=== PATIENT | male | born 1935 | race Hispanic/Latino ===

== ENCOUNTER 2016-06-20 14:20 | Inpatient (IN) | payer MEDICARE ==
[2016-06-20] MEDS ORDERED: ZOFRAN ONE (15:00)
[2016-06-20] MEDS ORDERED: ZOFRAN IV ONE ×2 (15:09→18:53)
--- NOTE | 2016-06-20 15:30 | Emergency Department Report ---
HPI - General Chief Complaint: Syncope Time Seen by Provider: 06/20/16 15:00 - HPI HPI: This is a 80-year-old male who presents to the emergency department by EMS from home with complaint of a passing out at home. The patient was outside working on the car when he started "feeling weird." He then went inside and sat down on a chair and his noticed him with his eyes rolling in the back of his head and his head fell back. She then tried to move his head back to midline but it continued to fall back with his eyes rolling in the back of his head. About a minute later the patient seemed to return back to normal level of consciousness. He complains of some generalized dizziness and/ or lightheadedness. Otherwise there is been no slurred speech, vision change, problems with ambulation or movement. Patient has a history of hypertension but no history of [place], CVA, PE/DVT. He doesn't history of some coronary artery disease but there are no stents placed and he has never had a bypass. 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 ED Past Medical Hx - Past Medical History Previous Medical History?: Yes Hx Hypertension: Yes Hx GERD: Yes Hx Arthritis: Yes Additional medical history: "heart blockages"--patient/ unsure if EKG related or vasculature related. high cholesterol - Social History Smoking Status: Former Smoker - Medications Home Medications: Home Medications Medication Instructions Recorded Confirmed Last Taken Type Aspirin EC [Aspirin Enteric Coated 81 mg PO QDAY 09/03/15 06/20/16 08/31/15 History TAB] Celecoxib [celeBREX] 200 mg PO QDAY 09/03/15 06/20/16 09/03/15 06:00 History Metoprolol [Lopressor TAB] 50 mg PO DAILY 09/03/15 06/20/16 09/02/15 History Nortriptyline [Pamelor] 25 mg PO QHS 09/03/15 06/20/16 2 Months Ago History Omeprazole/Sodium Bicarbonate 1 each PO Q42H PRN 09/03/15 06/20/16 3 Weeks Ago History [Zegerid 40-1,100 mg] Simvastatin [Zocor TAB] 20 mg PO DAILY 03/06/20/16 09/02/15 History Tramadol HCl [traMADol] 50 mg PO DAILY 09/03/15 06/20/16 09/03/15 History 0600 ED Review of Systems ROS: Stated complaint: SYNCOPE Other details as noted in HPI Comment: All other systems reviewed and negative Constitutional: denies: chills, fever Eyes: denies: eye pain, eye discharge, vision change ENT: denies: ear pain, throat pain Respiratory: denies: cough, shortness of breath, wheezing Cardiovascular: syncope. denies: chest pain Gastrointestinal: nausea. denies: abdominal pain, diarrhea Genitourinary: denies: urgency, dysuria Musculoskeletal: denies: back pain, joint swelling, arthralgia Skin: denies: rash, lesions Neurological: weakness. denies: numbness, paresthesias Physical Exam - Physical Exam Vital Signs: Vital Signs 06/20/16 14:38 Pulse Rate 77 Respiratory 16 Rate Blood Pressure 102/68 O2 Sat by Pulse 99 Oximetry Physical Exam: GENERAL: The patient is well-developed well-nourished. HEENT: Normocephalic. Atraumatic. Extraocular motions are intact. Patient has moist mucous membranes. Pupils equal reactive to light bilaterally. No nystagmus. NECK: Supple. Trachea is midline. CHEST/LUNGS: Clear to auscultation. There is no respiratory distress noted. HEART/CARDIOVASCULAR: Regular. There is no tachycardia. There is no gallop rub or murmur. ABDOMEN: Abdomen is soft, nontender. Patient has normal bowel sounds. There is no abdominal distention. SKIN: There is no rash. There is no edema. There is no diaphoresis. NEURO: The patient is awake, alert, and oriented. The patient is cooperative. The patient has no focal neurologic deficits. The patient has normal speech. Cranial nerves II-12 grossly intact. No pronator drift. MUSCULOSKELETAL: There is no tenderness or deformity. There is no evidence of acute injury. ED Course Vital Signs 06/20/16 14:38 Pulse Rate 77 Respiratory 16 Rate Blood Pressure 102/68 O2 Sat by Pulse 99 Oximetry ED Medical Decision Making - Lab Data Result diagrams: 06/20/16 15:19 06/20/16 15:19 - EKG Data -: EKG Interpreted by Me EKG shows normal: sinus rhythm (with PACs), axis (left axis deviation), intervals, QRS complexes (LVH with LBBB), ST-T waves Rate: normal - EKG Data When compared to previous EKG there are: no significant change Interpretation: unchanged when compared t (09/03/15), other (sinus with PACs) - Radiology Data Radiology results: report reviewed, image reviewed interpreted by me: Chest x-ray did not show any acute process. Heart is normal shape and size. No effusions. No pneumothorax. No signs of pneumonia seen. CT of the head does not show any acute process including no hemorrhage, mass, shift, diffuse edema or skull fracture. - Medical Decision Making 80-year-old male presents the emergency department after a syncopal episode that could've been seizure versus TIA versus other. CT of the head does not show any bleed, shift, mass or any acute process. Chest x-ray does not show any acute process. EKG shows left bundle branch block that is unchanged but does not show any STEMI or dysrhythmia. Patient's labs have been mostly unremarkable do not show any etiology the patient's symptoms. Since the patient is of advanced age, has a history of coronary artery disease, and still complains of some generalized dizziness, he'll be admitted to hospital for further evaluation and possible further imaging. He has been accepted for admission by the hospitalist, Dr. Watt. - Differential Diagnosis syncope, TIA, CVA, brain bleed, hypoglycemia Critical Care Time: No Critical care attestation.: If time is entered above; I have spent that time in minutes in the direct care of this critically ill patient, excluding procedure time. ED Disposition Clinical Impression: Hyperkalemia, Dizziness Syncope Qualifiers: Syncope type: unspecified Qualified Code(s): R55 - Syncope and collapse Disposition: OP ADMITTED IP TO THIS HOSP Is pt being admited?: Yes Does the pt Need Aspirin: Yes Condition: Stable Instructions: Syncope (ED) Time of Disposition: 18:18
[2016-06-20 15:37] LABS: Basophils % (Auto) 0.6 % (0.0-1.8); Eosinophils % (Auto) 2.1 % (0.0-4.3); Hematocrit 42.3 % (35.5-45.6); Hemoglobin 14.4 gm/dl (11.8-15.2); Mean Corpuscular HGB Conc 34 % (32-34); Mean Corpuscular Hemoglobin 34 pg (28-32); Mean Corpuscular Volume 100 fl (84-94); Platelet Count 192 K/mm3 (140-440); Red Blood Count 4.25 M/mm3 (3.65-5.03); Red Cell Distribution Width 13.4 % (13.2-15.2); White Blood Count 10.1 K/mm3 (4.5-11.0)
--- NOTE | 2016-06-20 15:53 | Cat Scan Report ---
CT HEAD WITHOUT CONTRAST INDICATION: Syncope. COMPARISON: 08/02/2007. FINDINGS: Noncontrast head CT demonstrates normal ventricles with symmetric, mildly enlarged, age appropriate sulci. Slight periventricular hypodensities. Minimal, benign right basal ganglia calcification. No acute infarct, hemorrhage, mass effect or midline shift. No abnormal extra axial fluid collections. Normal posterior fossa with preserved basilar cisterns. Unremarkable eye globes. Slight nasal septal deviation. Mild bilateral ethmoid and frontal sinusitis. Approximately 2 cm possible retention cyst in the right maxillary sinus inferiorly incompletely imaged. Clear mastoid air cells. Atherosclerotic internal carotid artery calcifications. Normal calvarium and scalp. Edentulous jaw. C3-C4 disc narrowing. CONCLUSION: Sinus disease without acute intracranial CT abnormality and few other incidental findings, as above. Thank you for the opportunity to participate in this patient's care.
[2016-06-20 15:59] LABS: Creatine Kinase MB 2.5 ng/mL (0.0-4.0)
[2016-06-20 16:01] LABS: Blood Urea Nitrogen 27 mg/dL (9-20); Carbon Dioxide 26 mmol/L (22-30); Chloride 102.6 mmol/L (98-107); Creatine Kinase 53 units/L (55-170); Glucose 121 mg/dL (75-100); Potassium 5.3 mmol/L (3.6-5.0); Sodium 140 mmol/L (137-145)
[2016-06-20 16:05] LABS: Anion Gap 17 mmol/L
--- NOTE | 2016-06-20 16:37 | Admit Criteria Form ---
Admission Criteria Documentation: SYNCOPE Clinical Indications for Admission to Inpatient Care ( Place 'X' for any and all applicable criteria): Admission is indicated for syncope and ANY ONE of the following (1)(2)(3)(4)(5) (6)(7) : [X ]I. Inpatient admission required rather than observation care (Also use Syncope: Observation Care Criteria as appropriate) because of ANY ONE of the following: [ ]a) Hemodynamic instability that is severe or persistent [ ]b) Cardiac arrhythmias of immediate concern identified or strongly suspected (eg, needs electrophysiologic study) [ ]c) Acute coronary syndrome identified (Also use Myocardial Infarction or Angina Criteria form ) [ ]d) Structural cardiac disorder (eg, aortic stenosis) suspected as cause that requires immediate correction [ ]e) Respiratory symptoms (eg, dyspnea, tachypnea) that are severe or persistent [ ]f) Neurologic signs or symptoms that are severe or persistent ( eg, stroke, seizures, altered mental status) [ ]g) Severe electrolyte abnormalities requiring inpatient care [ ]h) Supplemental oxygen or respiratory treatment for over 24 hrs that are performable only in acute inpatient setting [ ]i) IV fluid to replace significant ongoing (eg, for over 24 hrs ) losses (>3 L/m2 per day) [ ]j) Continuous intravenous infusion of anticoagulation, platelet inhibitor, vasoactive, or antiarrhythmic medication(15)(16) [ ]k) Pulmonary artery catheter monitoring [ ]l) Temporary pacemaker placement(17) [ ]m) Emergent cardioversion(18) [X]n) Other conditions, treatment or monitoring requiring inpatient admission [ ]II. Suspicion of imminently dangerous cause (eg, rare causes like pericardial tamponade, pulmonary embolism) [ ]III. Syncope causing severe injury requiring hospitalization Extended stay beyond goal length of stay may be needed for(28) [ ]a) Dangerous arrhythmia(15)(23)(27)(29) [ ]b) Myocardial ischemia [ ]c) Seizure disorder [ ]d) Syncope-related injuries The original [employer] content created by [employer] has been revised. The portions of the content which have been revised are identified through the use of italic text or in bold, and [employer] has neither reviewed nor approved the modified material. All other unmodified content is copyright [employer]. Please see references footnoted in the original [facility] edition 2016 Admission Criteria Met: Yes
--- NOTE | 2016-06-20 17:00 | XRay Report ---
PORTABLE CHEST: INDICATION: Syncope. COMPARISON: 11/20/2013 FINDINGS: Portable, frontal chest radiograph again demonstrates exaggerated cardiomediastinal silhouette/borderline cardiomegaly, mild aortic knob calcifications and clear lungs. Minimal fluid or thickening along the right minor fissure may again be noted. EKG leads. Demineralized bones with few degenerative changes. CONCLUSION: No acute chest process or significant interval change, as described. Thank you for the opportunity to participate in this patient's care.
[2016-06-20] MEDS ORDERED: BABY ASPIRIN PO ONE (18:18)
[2016-06-20] MEDS ORDERED: REGLAN ONE (19:31)
[2016-06-20] MEDS ORDERED: REGLAN IV ONE (19:32)
--- NOTE | 2016-06-21 02:40 | History and Physical Report ---
History of Present Illness Date of examination: 06/21/16 Date of admission: 06/20/16 22:28 Chief complaint: Unresponsiveness, coronary artery disease History of present illness: Patient is an 80-year-old gentleman who has a history of carotid disease, right hip was standing in the kitchen area with bedside, when he started feeling dizzy. His helped him to sit in a close by around the chair. Shortly thereafter patient treated with his head rolled his eyes. Was unresponsive about 2 minutes. Patient tried to arouse patient but was unsuccessful. Patient came around after 2 minutes. EMS was called in. Pt was brought to the emergency department where CT scan of the brain showed no evidence of intracranial hemorrhage or acute infarction. Right maxillary retention cyst identified. Denies any headache, chest pain or shortness of breath. Past History Past Medical History: hypertension, other (osteoarthritis) Past Surgical History: denies: No surgical history Social history: lives with family. denies: smoking, alcohol abuse, IV drug use Family history: CAD, diabetes Medications and Allergies Allergies Allergy/AdvReac Type Severity Reaction Status Date / Time diclofenac sodium Allergy Unknown Verified 11/20/13 01:55 [From [facility]] Home Medications Medication Instructions Recorded Confirmed Last Taken Type Aspirin EC [Aspirin Enteric Coated 81 mg PO QDAY 09/03/15 06/20/16 08/31/15 History TAB] Celecoxib [celeBREX] 200 mg PO QDAY 09/03/15 06/20/16 09/03/15 06:00 History Metoprolol [Lopressor TAB] 50 mg PO DAILY 09/03/15 06/20/16 09/02/15 History Nortriptyline [Pamelor] 25 mg PO QHS 09/03/15 06/20/16 2 Months Ago History Omeprazole/Sodium Bicarbonate 1 each PO QDAY 09/03/15 06/20/16 3 Weeks Ago History [Zegerid 40-1,100 mg] Simvastatin [Zocor TAB] 20 mg PO DAILY 09/03/15 06/20/16 09/02/15 History Tramadol HCl [traMADol] 50 mg PO DAILY 09/03/15 06/20/16 09/03/15 History 0600 Active Meds: Active Medications Aspirin (Halfprin Ec) 81 mg PO QDAY [facility] Celecoxib (Celebrex) 200 mg PO QDAY [facility] Influenza Virus Vaccine Quadrival (Fluarix Quad [id number](36 Mos+)) 60 mcg IM .ONCE ONE Stop: 06/21/16 10:01 Metoprolol Tartrate (Lopressor) 50 mg PO DAILY [facility] Nortriptyline HCl (Pamelor) 25 mg PO QHS [facility] Pantoprazole Sodium (Protonix) 40 mg PO DAILY PRN PRN Reason: Dyspepsia Simvastatin (Zocor) 20 mg PO DAILY [facility]ANI Tramadol HCl (Ultram) 50 mg PO BID [facility] Review of systems Constitutional: Well Nouridhed and Well developed. Head: NC/ AT Eyes: Denies any visual impairments. No discharge from the eyes Nose: Denies any rhinorrhea or epistaxis Throats: Denies any post nasal drainage. Ears: Denies any hearing deficits Cardiovascular system: Denies any chest pain, shortness of breath, orthopnea, paroxysmal nocturnal dyspnea, or palpitation. Respiratory system: Denies any cough, difficulty breathing, wheezing, pleuritic chest pain, Gastrointestinal system: Denies any abdominal pain, nausea vomiting, hematemesis or melena. Neurological system: Denies any headache, slurred speech, facial droop, lateralizing weakness Genitalia system: Denies any dysuria, urinary frequency or urgency, urethral discharge Skin: No rashes, hyperpigmented spots. Hematological: Denies any cervical tenderness hemorrhages or petechia. Immunological: Denies any multiple septic spots, Lymphatic: Denies any generalized lymphadenopathy. Endocrine: Denies any polyuria, polydipsia, polyphagia. No heat or cold intolerance. Exam - Constitutional Vitals: Temp Pulse Resp BP Pulse Ox 98.1 F 94 H 18 148/81 94 06/21/16 00:10 06/21/16 00:10 06/21/16 00:10 06/21/16 00:10 06/21/16 00:10 General appearance: Present: no acute distress, well-nourished - EENT Eyes: Present: PERRL ENT: hearing intact, clear oral mucosa - Neck Neck: Present: supple, normal ROM - Respiratory Respiratory effort: normal Respiratory: bilateral: CTA - Cardiovascular Heart Sounds: Present: S1 & S2. Absent: rub, click - Extremities Extremities: pulses symmetrical, No edema Peripheral Pulses: within normal limits - Abdominal General gastrointestinal: Present: soft, non-tender, non-distended, normal bowel sounds Male genitourinary: Present: normal - Integumentary Integumentary: Present: clear, warm, dry - Musculoskeletal Musculoskeletal: gait normal, strength equal bilaterally - Psychiatric Psychiatric: appropriate mood/affect, intact judgment & insight - Neurologic Neurologic: CNII-XII intact, moves all extremities Results - Labs CBC & Chem 7: 06/20/16 15:19 06/20/16 15:19 Assessment and Plan Assessment 1 TIA 2. Coronary artery disease axis unresponsiveness 3. Hyperglycemia Plan Neuro check every 4, MRI of the brain, carotid Doppler, TSH and lipid panel. Commence patient on aspirin 325 mg daily DVT prophylaxis with Lovenox, Atorvastatin 20 mg daily lisinopril 10 mg A1c DVT prophylaxis with Lovenox, GI prophylaxis with Protonix Spent 35 minutes in direct patient care management plan to the patient and family members. - Patient Problems (1) TIA (transient ischemic attack) Current Visit: Yes Status: Acute (2) Hyperkalemia Diagnosis Date: 06/20/16 Current Visit: Yes Status: Acute (3) Syncope Diagnosis Date: 06/20/16 Current Visit: Yes Status: Acute Qualifiers: Syncope type: unspecified Qualified Code(s): R55 - Syncope and collapse
[2016-06-21 09:25] LABS: Anion Gap 17 mmol/L; BUN/Creatinine Ratio 32.22; Blood Urea Nitrogen 29 mg/dL (9-20); Calcium 8.7 mg/dL (8.4-10.2); Carbon Dioxide 25 mmol/L (22-30); Chloride 99.5 mmol/L (98-107); Glucose 123 mg/dL (75-100); Potassium 4.7 mmol/L (3.6-5.0); Sodium 137 mmol/L (137-145)
[2016-06-21] MEDS ORDERED: PROTONIX PO PRN (10:00)
--- NOTE | 2016-06-21 11:41 | Magnetic Resonance Report ---
MRI OF THE BRAIN WITHOUT CONTRAST: HISTORY: TIA PROCEDURE: Multiplanar, multisequence MR imaging of the brain without IV contrast was performed. FINDINGS: Compared to the CT brain dated 06/20/16. Mild diffuse volume loss and mild nonspecific chronic white matter changes are noted. No evidence for acute ischemia, hemorrhage or mass. No chronic infarct or extra-axial fluid collection. The midline structures are central. The basal cisterns are patent. Normal ventricular size. The orbital cavities and sella turcica demonstrate no abnormality. The visualized paranasal sinuses and mastoid air cells are well aerated. IMPRESSION: No acute intracranial process. Volume loss and chronic white matter changes which appear appropriate for this persons age.
[2016-06-21] MEDS: ULTRAM PO SCH ×2 (11:54→22:34)
[2016-06-21] MEDS ORDERED: FLUARIX QUAD 2016-2017(36 MOS+) IM ONE (12:00)
[2016-06-21] MEDS ORDERED: ZOFRAN IV PRN (12:00)
[2016-06-21] MEDS: HALFPRIN EC PO SCH (12:53)
[2016-06-21] MEDS: ZOCOR PO SCH (12:53)
[2016-06-21] MEDS: LOPRESSOR PO SCH (12:55)
--- NOTE | 2016-06-21 16:32 | Discharge Summary ---
Providers - Providers Date of Admission: 06/20/16 22:28 Date of discharge: 06/21/16 Attending physician: ANDREA DANIELLE Primary care physician: JESSICA MELCHOR MD Hospitalization Condition: Fair Disposition: DISCHARGED TO HOME OR SELFCARE - Discharge Diagnoses (1) Vasovagal syncope Status: Acute (2) Dizziness Status: Acute (3) Hyperkalemia Status: Acute (4) HTN (hypertension) Status: Chronic (5) Hyperlipidemia Status: Chronic Core Measure Documentation - Palliative Care Palliative Care/ Comfort Measures: Not Applicable - Core Measures Any of the following diagnoses?: none Exam - Constitutional Vitals: Temp Pulse Resp BP Pulse Ox 98.7 F 68 20 146/77 95 06/21/16 16:00 06/21/16 16:00 06/21/16 16:00 06/21/16 16:00 06/21/16 16:00 General appearance: Present: no acute distress Plan Activity: no driving until cleared by PCP Diet: low fat, low cholesterol, low salt Additional Instructions: 1. Follow up with primary care physician in one week. 2. Follow-up with cardiology in 1 week Follow up with: PRIMARY CARE, [Primary Care Provider] - 3-5 Days Prescriptions: Meclizine [Antivert] 25 mg PO TID PRN #30 tablet PRN Reason: dizziness
--- NOTE | 2016-06-21 18:01 | Echocardiography Report ---
Transthoracic Echocardiogram Indication: Syncope BP: 123/76 Findings Left Ventricle: The left ventricular chamber size is normal. Mild concentric left ventricular hypertrophy is observed. Global left ventricular wall motion and contractility are within normal limits. Global left ventricular systolic function is at the lower limits of normal. The estimated ejection fraction is 50-55%. Abnormal left ventricular diastolic filling is observed, consistent with impaired relaxation. Left Atrium: The left atrial chamber size is normal. Right Ventricle: The right ventricular cavity size is normal. The right ventricular global systolic function is normal. Right Atrium: The right atrial cavity size is normal. The interatrial septum appears normal. Aortic Valve: The aortic valve is trileaflet. The aortic valve leaflets are moderately thickened. Mild aortic leaflet calcification is visualized. There is trace of aortic regurgitation. There is no evidence of aortic stenosis. Mitral Valve: The mitral valve leaflets appear myxomatous. There is mitral annular calcification. The mitral valve leaflets are mildly thickened. Mild mitral leaflet calcification is visualized. There is mild to moderate mitral regurgitation. There is no evidence of mitral stenosis. Tricuspid Valve: The tricuspid valve leaflets are normal. There is trace tricuspid regurgitation. The right ventricular systolic pressure is calculated at 20 mmHg. No pulmonary hypertension is noted. There is no tricuspid stenosis. Pulmonic Valve: The pulmonic valve appears normal. There is no evidence of pulmonic regurgitation. There is no pulmonic stenosis. Pericardium: There is no pericardial effusion. Aorta: There is no dilatation of the ascending aorta. There is no dilatation of the aortic root. Venous: The inferior vena cava appears normal in size. Measurements Chambers MM Name Value Normal Range Ao root diameter (MM) 3.1 cm (2 - 3.7) LA dimension (AP) MM 4.4 cm (1.9 - 4) LA:Ao ratio (MM) 1.42 ratio - AV cusp separation (MM) 1.4 cm (1.5 - 2.6) Chambers 2D Name Value Normal Range IVSd (2D) 1.25 cm (0.6 - 1.1) LVPWd (2D) 1.25 cm (0.6 - 1.1) IVS:LVPW ratio (2D) 1 ratio - LVIDd (2D) 4.3 cm (3.7 - 5.6) LVIDs (2D) 3.2 cm (2 - 3.8) LV FS (Teichholz) (2D) 25.6 % - LV FS (cube) (2D) 25.6 % - EF Teichholz (2D) 50.7 % - LA dimension (AP) 2D 3.5 cm (1.9 - 4) Volumes/Mass Name Value Normal Range LA ESV SP 4CH (MOD) 27 ml - LA ESV SP 2CH (MOD) 44 ml - LA ESV BP (MOD) 35 ml - LA ESV BP (MOD) index 18 ml/m2 - Diastolic/Systolic Function Name Value Normal Range MV E-wave Vmax 0.57 m/sec - MV deceleration time 211 msec - MV A-wave Vmax 1.18 m/sec - MV E:A ratio 0.5 ratio - LV septal e' Vmax 0.06 m/sec - LV lateral e' Vmax 0.08 m/sec - LV E:e' septal ratio 9.5 ratio - LV E:e' lateral ratio 6.9 ratio - Aortic Valve Name Value Normal Range AV VTI 31.5 cm - AV mean gradient 7 mmHg - LVOT diameter 2.1 cm - LVOT VTI 21 cm - LVOT mean gradient 3 mmHg - SV LVOT 73 ml - VEL (continuity VTI) 2.31 cm2 - Mitral Valve Name Value Normal Range MV PHT 54 msec - MR Vmax 4.15 m/sec - MVA (PHT) 4.07 cm2 - Tricuspid Valve Name Value Normal Range TR Vmax 2.05 m/sec - TR peak gradient 17 mmHg - RAP 3 mmHg - RVSP 20 mmHg - Pulmonic Valve/Qp:Qs Name Value Normal Range PV Vmax 1.25 m/sec - PV peak gradient 6 mmHg - PV acceleration time 106 msec -
--- NOTE | 2016-06-21 18:10 | Progress Note ---
Assessment and Plan - Patient Problems (1) Vasovagal syncope Current Visit: Yes Status: Acute (2) Dizziness Current Visit: Yes Status: Acute (3) Hyperkalemia Diagnosis Date: 06/20/16 Current Visit: Yes Status: Acute (4) HTN (hypertension) Current Visit: Yes Status: Chronic (5) Hyperlipidemia Current Visit: Yes Status: Chronic Hospitalist Physical - Constitutional Vitals: Temp Pulse Resp BP Pulse Ox 98.7 F 68 20 146/77 95 06/21/16 16:00 06/21/16 16:00 06/21/16 16:00 06/21/16 16:00 06/21/16 16:00 General appearance: Present: no acute distress Results - Labs CBC & Chem 7: 06/20/16 15:19 06/21/16 09:01 Labs: Laboratory Last Values WBC 10.1 K/mm3 (4.5-11.0) 06/20/16 15:19 RBC 4.25 M/mm3 (3.65-5.03) 06/20/16 15:19 Hgb 14.4 gm/dl (11.8-15.2) 06/20/16 15:19 Hct 42.3 % (35.5-45.6) 06/20/16 15:19 MCV 100 fl (84-94) H 06/20/16 15:19 MCH 34 pg (28-32) H 06/20/16 15:19 MCHC 34 % (32-34) 06/20/16 15:19 RDW 13.4 % (13.2-15.2) 06/20/16 15:19 Plt Count 192 K/mm3 (140-440) 06/20/16 15:19 Lymph % (Auto) 10.0 % (13.4-35.0) L 06/20/16 15:19 [place] % (Auto) 10.8 % (0.0-7.3) H 06/20/16 15:19 Eos % (Auto) 2.1 % (0.0-4.3) 06/20/16 15:19 Baso % (Auto) 0.6 % (0.0-1.8) 06/20/16 15:19 Lymph # 1.0 K/mm3 (1.2-5.4) L 06/20/16 15:19 [place] # 1.1 K/mm3 (0.0-0.8) H 06/20/16 15:19 Eos # 0.2 K/mm3 (0.0-0.4) 06/20/16 15:19 Baso # 0.1 K/mm3 (0.0-0.1) 06/20/16 15:19 Seg Neutrophils % 76.5 % (40.0-70.0) H 06/20/16 15:19 Seg Neutrophils # 7.7 K/mm3 (1.8-7.7) 06/20/16 15:19 Sodium 137 mmol/L (137-145) 06/21/16 09:01 Potassium 4.7 mmol/L (3.6-5.0) 06/21/16 09:01 Chloride 99.5 mmol/L (98-107) 06/21/16 09:01 Carbon Dioxide 25 mmol/L (22-30) 06/21/16 09:01 Anion Gap 17 mmol/L 06/21/16 09:01 BUN 29 mg/dL (9-20) H 06/21/16 09:01 Creatinine 0.9 mg/dL (0.8-1.5) 06/21/16 09:01 Estimated GFR > 60 ml/min 06/21/16 09:01 BUN/Creatinine Ratio 32.22 % 06/21/16 09:01 Glucose 123 mg/dL (75-100) H 06/21/16 09:01 Calcium 8.7 mg/dL (8.4-10.2) 06/21/16 09:01 Total Creatine Kinase 53 units/L (55-170) L 06/20/16 15:19 CK-MB (CK-2) 2.5 ng/mL (0.0-4.0) 06/20/16 15:19 CK-MB (CK-2) Rel Index 4.7 (0-4) H 06/20/16 15:19 Troponin T < 0.010 ng/mL (0.00-0.029) 06/20/16 15:19 Triglycerides 61 mg/dL (2-149) 06/21/16 06:20 Cholesterol 99 mg/dL (50-199) 06/21/16 06:20 LDL Cholesterol Direct 43 mg/dL (50-130) L 06/21/16 06:20 HDL Cholesterol 44 mg/dL (40-59) 06/21/16 06:20 Cholesterol/HDL Ratio 2.25 % 06/21/16 06:20 TSH 0.501 mlU/mL (0.270-4.200) 06/21/16 06:20
[2016-06-21] MEDS ORDERED: NACL 0.9% 1000 ML 1,000 ML IV SCH (19:00)
[2016-06-21] MEDS ORDERED: PAMELOR PO SCH (22:00)
[2016-06-22] MEDS: ZOCOR PO SCH (09:36)
[2016-06-22] MEDS: HALFPRIN EC PO SCH (09:36)
[2016-06-22] MEDS: LOPRESSOR PO SCH (09:37)
[2016-06-22 11:19] LABS: Anion Gap 13 mmol/L; Blood Urea Nitrogen 29 mg/dL (9-20); Calcium 8.4 mg/dL (8.4-10.2); Carbon Dioxide 27 mmol/L (22-30); Chloride 100.9 mmol/L (98-107); Glucose 76 mg/dL (75-100); Potassium 4.3 mmol/L (3.6-5.0); Sodium 137 mmol/L (137-145)
--- NOTE | 2016-06-22 11:32 | Event Note ---
Date: 06/22/16 Patient stable to go home
[2016-06-22 13:02] VITALS: BP 110/58
--- NOTE | 2016-06-24 07:37 | Vascular Lab Report ---
CAROTID DUPLEX STUDY: RIGHT PSVEDV CCA PROX:[id number] CCA DIST:[id number] ICA PROX:5713 ICA MID:9324 ICA DIST:8923 ECA: 89 VERT: 45 13 LEFT PSVEDV CCA PROX:[id number] CCA DIST:8619 ICA PROX:6717 ICA MID:6520 ICA DIST:6922 ECA: 119 VERT: 62 23 REASON FOR EXAM: TIA. COMMENTS ON THE RIGHT: Doppler frequency analysis is consistent with 16 to 49 percent diameter reduction of the internal carotid artery. Minimal amount of focal plaque is seen in the carotid bulb. The common carotid artery is patent. The external carotid artery is patent. The vertebral artery has antegrade flow. COMMENTS ON THE LEFT: Doppler frequency analysis is consistent with 16 to 49 percent diameter reduction of the internal carotid artery. Minimal amount of focal plaque is seen in the carotid bulb. The common carotid artery is patent. The external carotid artery is patent. The vertebral artery has antegrade flow. 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 Consider repeat carotid artery duplex in 12 months.
== END 2016-06-22 14:17 | disposition home or self-care (01) | DRG 312 ==
LOC: ED 14:20 → 4A 22:28
PROVIDERS: ADMIT Family Medicine; ATTEND Internal Medicine
DX: R55 Syncope and collapse (principal); G45.9 Transient cerebral ischemic attack, unspecified; I25.10 Atherosclerotic heart disease of native coronary artery without angina pectoris; E87.5 Hyperkalemia; I10 Essential (primary) hypertension; K21.9 Gastro-esophageal reflux disease without esophagitis; M19.90 Unspecified osteoarthritis, unspecified site; R73.9 Hyperglycemia, unspecified; E78.5 Hyperlipidemia, unspecified; Z87.891 Personal history of nicotine dependence; Z79.82 Long term (current) use of aspirin; Z79.899 Other long term (current) drug therapy; Z82.49 Family history of ischemic heart disease and other diseases of the circulatory system; Z83.3 Family history of diabetes mellitus; Z88.8 Allergy status to other drugs, medicaments and biological substances
CPT/HCPCS: 36415; 70450; 70551; 71010; 80048; 80061; 82550; 82553; 84443; 84484; 85025; 90686; 93005; 93010; 93306; 93880; 96374; 96375; 96376; J2405; J2765; J7030